=== PATIENT | male | born 1940 | race Caucasian/White ===

== ENCOUNTER 2020-07-15 14:10 | Outpatient (REF) | payer MEDICARE, BC, SELFPAY | END 2020-07-15 14:11 | disposition home or self-care (01) | LOC: HO.BBR 14:10 | PROVIDERS: PCP Internal Medicine; Visit Provider Internal Medicine Hematology & Oncology | DX: E83.110 Hereditary hemochromatosis (principal) | CPT/HCPCS: 99195 ==